=== PATIENT | female | born 1965 | race Caucasian/White ===

== ENCOUNTER 2025-04-24 14:07 | Day surgery (SDC) | payer BC ==
[2025-04-24] MEDS: IV FLUID CONTINUATION 1,000 ML IV ONE (14:39)
[2025-04-24 14:43] VITALS: TEMP 97
[2025-04-24] MEDS: LACTATED RINGERS 1,000 ML IV SCH (14:55)
[2025-04-24] MEDS ORDERED: PROPOFOL 10 MG/ML 20 ML VIAL IV ONE (14:56)
[2025-04-24 15:01] LABS: Glucose,Whole Blood 86 mg/dL (70-110)
--- NOTE | 2025-04-24 15:21 | P.PCN ---
Date of Procedure: 04/24/25 Procedure(s) Performed: BRIEF HISTORY: Patient is a 59-year-old pleasant white female scheduled for an elective colonoscopy as a part of screening for colon cancer/positive Cologuard. PROCEDURE PERFORMED: Colonoscopy with snare polypectomy. PREOPERATIVE DIAGNOSIS: Screening for colon cancer/positive Cologuard. IV sedation per Anesthesia. PROCEDURE: After informed consent was obtained, the patient, was brought into the endoscopy unit. IV sedation was administered by Anesthesia under continuous monitoring. Digital rectal examination was normal. Initially the Olympus CF-160 flexible video colonoscope was then inserted in the rectum, gradually advanced into the cecum without any difficulty. Careful examination was performed as the scope was gradually being withdrawn. Ileocecal valve and the appendiceal orifice were visualized and appeared normal. Prep was excellent. Mucosa of the cecum, ascending colon, appeared normal. The transverse colon there was a 1 cm polyp removed by snare polypectomy. Rest of the transverse colon, descending colon, sigmoid colon, and rectum appeared normal. Katter sigmoid diverticulosis. Retroflexion was performed in the rectum and no lesions were seen. The patient tolerated the procedure well. IMPRESSION: 1 cm transverse colon polyp status post snare polypectomy Scattered sigmoid diverticulosis RECOMMENDATIONS: Findings of this examination were discussed with the patient as well as her family. She was advised to follow-up with the biopsy results. If the biopsy reveals adenoma she can have repeat colonoscopy in 3 years..
[2025-04-24 15:56] VITALS: BP 146/93; PULSE 76; RESP 18
== END 2025-04-24 16:10 | disposition home or self-care (01) ==
LOC: ORWHC2ENDO 14:07
PROVIDERS: ATTEND Internal Medicine Gastroenterology
DX: Z12.11 Encounter for screening for malignant neoplasm of colon (principal); D12.3 Benign neoplasm of transverse colon; K57.30 Diverticulosis of large intestine without perforation or abscess without bleeding; I10 Essential (primary) hypertension; E11.9 Type 2 diabetes mellitus without complications; E78.5 Hyperlipidemia, unspecified; Z79.85 Long-term (current) use of injectable non-insulin antidiabetic drugs; Z79.84 Long term (current) use of oral hypoglycemic drugs; Z79.899 Other long term (current) drug therapy; Z88.2 Allergy status to sulfonamides
CPT/HCPCS: 88305; 45385; J2704